=== PATIENT | male | born 1970 | race Caucasian/White ===

== ENCOUNTER 2019-04-22 14:16 | Outpatient (CLI) | payer OTHER ==
[2019-04-22 15:31] VITALS: BP 138/89
--- NOTE | 2019-04-22 15:31 | SLEEP CARE CONSULTATION ---
Information from patient questionnaire entered by Garima Hutchison. I have reviewed and concur with the information entered by Garima Hutchison. This document represents the service I personally performed and the decisions made by me, Wade Graham MD, [facility]. History of Present Illness Reason for Visit: New patient Chief Complaint: reports: Snoring, Fatigue Duration of Symptoms: 5 years Usual bedtime: 2100 Time it takes to fall asleep: 1.5-2 hours Snores at night: Yes Observed to quit breathing while asleep: Yes Sleeps alone due to snoring: Yes Number of times waking at night: 2-3 Reasons for waking at night: reports: Other (unknown) Toss, Turn, or Twitch while sleeping: Yes Recalls having dreams: No Usually gets out of bed at: [id number] Feels refreshed in the morning: No Morning headache: No Sleepy or fatigued during the day: Yes Ever fallen asleep while driving: No Takes day naps: Yes Dreams during day naps: No Prior sleep studies: No Additional HPI information: I had the pleasure of seeing Mr. George today regarding the possibility of him having a sleep disorder. As you know, he is a 48 year old gentleman who complains of loud snore and persistent fatigue for the past 5 years. The patient tells me that he normally goes to bed around 9 pm, and it takes him approximately 1.5 - 2 hours to fall asleep. He has been told that he snores loudly and irregularly at night. He has also been observed to stop breathing in his sleep. His has to sleep in a separate room. He can recall waking up on the average of 2 - 3 times during the night. Most of the time he wakes up because of unknown reasons. He has never awakened because of his own snoring, choking, or having to gasp for air. There is a lot of tossing and turning in his sleep. No somniloquy (sleep talking) or somnambulism (sleep walking). Generally he can recall having dreams. In the morning he usually gets up out of the bed around 4:30 - 6 a.m. (9 am when not working) not feeling refreshed nor rested. He usually does not have a morning headache. During the day he complains of feeling sleepy and fatigued. His score on [place] Sleepiness Scale is 15 out of 24. He has never fallen asleep while driving nor has had any accident due to sleepiness. He usually does not take naps during the day. Upon falling asleep during the day he denies having vivid dreams. He has never had sleep paralysis, experienced cataplexy or symptoms of restless leg syndrome. He reports having impaired concentration during the day. 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 Patient is and lives in [place]. Have you smoked in the past 12 months: No Alcohol use: Yes Alcohol amount and frequency: 3, 1-2 days Caffeine use: Yes Caffeine amount and frequency: every day Family History Family history of sleep disordered breathing: Yes Family Hx Sleep Apnea: Father: Snoring Allergies and Home Medications Drug allergies reviewed: Yes (NKDA) Home medication list reviewed: Yes (Viagra) Review of Systems Weight gain over past 5 years: 15 Cardiovascular: denies: high blood pressure, palpitations, chest pain, irregular heart rate or pulse, leg or foot swelling, have to sleep sitting up, other Respiratory: denies: shortness of breath, wheeze, sputum production, chronic cough, other Gastrointestinal: denies: heartburn, difficulty swallowing, nausea, vomitting, diarrhea, abdominal pain, other Urinary: reports: other (erectile dysfunction) Neurological: denies: headaches, seizure, head trauma, disorientation, speech dysfunction, gait or balance problems, fainting or unconsciousness, other Psychiatric: denies: Attention Deficit Hyperactivity, anxiety, depression, mood disorder, claustrophobia, other Ear/Nose/Throat: denies: nasal congestion, sinus problems, nose bleeds, dry mouth/throat, hoarseness, injury to nose, tonsillectomy, wisdom teeth removed, other Endocrine: reports: sluggishness, increased appetite Musculoskeletal: reports: joint pain, back pain Immunologic: denies: sneezing, rash, itching, allergies to food or environment, other Physical Exam Vital signs obtained and entered by: Dr. Graham Blood Pressure: 138/89 Cuff size: regular Heart Rate: 84 O2 Saturation: 95 Height: 5 ft 7 in Weight: 230 lb Body Mass Index: 36.0 BMI Classification: Obese Neck circumference: 19 Mood/affect: normal HEENT: No craniofacial malformation Nostrils: patent to airflow Turbinates: normal Septum: midline Mouth and throat: narrow oropharynx Soft palate: long Hard palate: normal Uvula: normal Uvula visualization: 25% Mallampati Class III Tongue: enlarged in size with teeth díaz on lateral edges Tonsils: small Chin and jaw: normal size and position Neck: normal w/o lymphadenopathy or thyromegaly Heart: regular rate and rhythm Lungs: clear bilaterally Abdomen: soft, non-tender Extremities: no edema or clubbing Neurologic: intact, no focal deficits Impression and Plan IMPRESSION: 1. Obstructive Sleep Apnea-Hypopnea Syndrome, as suggested by history of loud and irregular snoring, observed cessation of breath while asleep, frequent awakenings during the night, unrefreshed sleep, cognitive impairment, and daytime hypersomnolence. Narrow oropharynx and obesity are common predisposing factors for obstructive sleep apnea-hypopnea syndrome. Pathophysiology of sleep-disordered breathing was discussed. I recommend proceeding to polysomnography to confirm the diagnosis and to assess severity. If he has significant sleep disordered breathing, a manual CPAP titration study will also be performed to find the optimal treatment pressure. I informed the patient of what the sleep studies involve and after some discussion, he agreed to proceed. 2. Delayed sleep phase syndrome, causing sleep onset insomnia and insufficient sleep on weeknights. Because he wakes up at 9 am on the weekends, the physiologic bedtime is not until 1 am, assuming the normal sleep requirement of 8 hours a night. Therefore, when he tries to go to bed early on weeknights, he lies awake for a few hours. The solution is to keep his wakeup time consistentwaking up no later than 7 am on the weekends. Plan: 1. Schedule an in-laboratory polysomnography + manual CPAP titration study 2. Avoid long distance driving or when feeling sleepy. 3. Avoid alcohol, sedative and muscle relaxant around bedtime. 4. Attempt to lose weight. 5. Return in 1 to 2 weeks after the study to discuss results and initiate therapy. I spent 100% of this visit face to face with the patient with greater than 50% of this was spent time counseling the patient and coordination of care.
== END 2019-04-22 14:17 | disposition home or self-care (01) ==
LOC: SC 14:16
PROVIDERS: ATTEND Internal Medicine Pulmonary Disease
DX: R06.83 Snoring (principal); R06.81 Apnea, not elsewhere classified; G47.8 Other sleep disorders; R41.89 Other symptoms and signs involving cognitive functions and awareness; G47.10 Hypersomnia, unspecified; G47.21 Circadian rhythm sleep disorder, delayed sleep phase type; E66.9 Obesity, unspecified; Z68.36 Body mass index [BMI] 36.0-36.9, adult
CPT/HCPCS: 99203; 99212

== ENCOUNTER 2019-05-18 19:33 | Outpatient (CLI) | payer OTHER | END 2019-05-18 19:34 | disposition home or self-care (01) | LOC: SC 19:33 | PROVIDERS: ATTEND Internal Medicine Pulmonary Disease | DX: G47.33 Obstructive sleep apnea (adult) (pediatric) (principal); G47.61 Periodic limb movement disorder; E66.9 Obesity, unspecified; Z68.36 Body mass index [BMI] 36.0-36.9, adult | CPT/HCPCS: 95810 ==

== ENCOUNTER 2019-06-17 16:28 | Outpatient (CLI) | payer OTHER ==
--- NOTE | 2019-06-17 15:39 | SLEEP CARE CONSULTATION ---
Information from patient questionnaire entered by Garima Hutchison. I have reviewed and concur with the information entered by Garima Hutchison. This document represents the service I personally performed and the decisions made by me, Wade Graham MD, [facility]. History of Present Illness Service Date and Time: 06/17/2019 1340 Initial [place] Sleepiness Scale score: 15 Additional HPI information: HPI: Mr. George was called for a follow up of the sleep study he had on 05/18/2019. The polysomnography showed that the patient had reduced sleep efficiency due to sleep onset insomnia and several awakenings during the night. Despite moderate sleep fragmentation, the sleep architecture was normal. Respiratory monitoring showed severe obstructive sleep apnea-hypopnea (AHI = 35.1) associated with frequent arousals, oxyhemoglobin desaturation and moderate hypoxia (joel oxygen saturation of 76%). Baseline oxygen saturation was normal. The respiratory events occurred mainly during supine sleep (supine AHI = 70.7; non-supine = 24.37). Snore was loud in intensity. There was mild periodic leg movement of sleep not contributing to the sleep fragmentation. Cardiac rhythm was normal sinus rhythm without significant arrhythmia. No abnormal behavior (parasomnia) observed during the night. The patient was informed of these findings. I explained to him the pathophysiology behind obstructive sleep apnea. We then spent quite a bit of time discussing different treatment options. For mild obstructive sleep apnea, surgery and oral appliance are alternatives to nasal CPAP therapy but in moderate or severe cases, nasal CPAP is the most effective and reliable treatment. Weight loss in an obese individual is strongly recommended. After some discussion, he opted to go with the nasal CPAP therapy. I explained to him how CPAP machine works and what to expect when using the machine. He is encouraged to use CPAP every night especially in the first 2 to 3 nights in order to get used to it. He should call his CPAP supplier or me to discuss any mechanical problem that may occur. If he snores or feels like he is not getting enough air from the machine, he should notify me and I will increase the pressure. Allergies and Home Medications Drug allergies reviewed: Yes Home medication list reviewed: Yes Review of Systems Review of systems same as previous: Yes Physical Exam Height: 5 ft 7 in Impression and Plan IMPRESSION: 1. Obstructive Sleep Apnea-Hypopnea Syndrome, severe, associated with moderate hypoxemia and sleep fragmentation. Obviously this is the cause of the patients symptoms of unrefreshed sleep, and excessive daytime sleepiness. As mentioned above, the patient will be started on an autoCPAP set at 5 - 15 cmH2O. Depending on his response and compliance he may be brought back for an overnight CPAP titration study (due to COVID-19, no sleep studies are being performed at the present). PLAN: 1. Prescription made for an autoCPAP, heated humidifier, and related supplies. 2. Attempt to lose weight and avoid alcohol consumption near bedtime. 3. The patient is again cautioned about driving until his sleepiness completely resolves on the CPAP therapy. 4. Return in six weeks for follow up. I will assess his response and compliance at that time. Visit Type: Telehealth Video Video Type: [employer] Location of Provider: Home Patient agrees and consents to this telehealth visit type: Yes Time Spent with Patient (minutes): 15 Provider Statement: I spent 100% of the Telehealth Video Call with the patient with greater than 50% spent counseling the patient and coordination of care.
== END 2019-06-17 16:29 | disposition home or self-care (01) ==
LOC: SC 16:28
PROVIDERS: ATTEND Internal Medicine Pulmonary Disease
DX: G47.33 Obstructive sleep apnea (adult) (pediatric) (principal)
CPT/HCPCS: 99212; 99213

== ENCOUNTER 2020-11-24 15:18 | Outpatient (CLI) | payer OTHER ==
[2020-11-24 16:05] VITALS: BP 137/88
--- NOTE | 2020-11-24 16:05 | SLEEP CARE CONSULTATION ---
Information from patient questionnaire entered by Garima Hutchison. I have reviewed and concur with the information entered by Garima Hutchison. This document represents the service I personally performed and the decisions made by , Niesha Pan ARNP. History of Present Illness Service Date and Time: 11/24/2020 1518 Previous diagnosis: Severe, Obstructive Sleep Apnea-Hypopnea Syndrome AHI: 35.1 Reason for follow up: annual Equipment type: CPAP Equipment obtained from: Other ([facility]; getting supplies as needed) Mask style: Full face (Air Touch best F20) Backup mask available: Yes (old mask) Last cushion change: 3 weeks Prior sleep studies: Yes Year and Where: 2019 [facility] Type of Sleep Study: Polysomnography HPI additional information: BLANQUITA AGUIRRE was diagnosed to have severe, AHI 35.1, obstructive sleep apnea- hypopnea syndrome and returned today for CPAP therapy annual follow-up. Sleep Study - Results Prior sleep studies: Yes Year and Where: 2019 [facility] [employer] [facility] CPAP Compliance Data - Data Reviewed with Patient Average duration of nightly device use: 7 hours 13 minutes Compliance rate %: 93.9 Current pressure setting (cmH2O): 8-15 Humidity settin Heated hose settin Average residual AHI: 3.2 Average large leak: 0 seconds Subjective Missed days of use due to: reports: travel, other (recall) Patient concerns: reports: dry mouth, nose, throat (occasional). denies: aerophagia, mask discomfort, air blowing in eyes, mask leak noise, condensation in mask/hose, nasal congestion, epistaxis, other Observed to snore while using device: No Current pressure setting perceived as: comfortable On therapy, patient: reports: sleeping better, awakening more refreshed, being more awake and alert during the day, more rested overall. denies: drowsiness while driving Initial [place] Sleepiness Scale score: 15 (in 2020) Current [place] Sleepiness Scale score: 5 Allergies and Home Medications Home medication list reviewed: Yes (no changes) Review of Systems Review of systems same as previous: Yes (no changes) Physical Exam Blood Pressure: 137/88 Cuff size: wrist Heart Rate: 93 O2 Saturation: 95 Height: 5 ft 7 in Weight: 252 lb Body Mass Index: 39.4 BMI Classification: Obese Impression and Plan 1. Obstructive Sleep Apnea-Hypopnea Syndrome, severe, with good treatment compliance and good apnea control. On CPAP therapy, the patient has better sleep quality and is more rested overall. Patient aware of Lindsey recall comes in for his annual follow-up. Patient has already registered their device for the recall. Patient denies any black particles seen in machine or hoses, any unusual odors coming from device. Patient has not experienced any physical symptoms such as upper airway irritation, headache, skin or eye irritation, asthma, nausea/vomiting, difficulty breathing or chest pain. Patient informed that they may use an inline CPAP filter that they can obtain online to reduce chance of any particles being inhaled or ingested. We discussed thoroughly the health risks of not using the CPAP versus continuing use with the filter in place. If patient is not able to sleep due to waking up choking, gasping for air or other respiratory distress that they may decide to continue using it until it is either replaced or repaired. Patient has [employer] insurance which has said it will replace his device that is on recall. I will write for this replacement de vice and have him follow-up here a month after he obtains the new device. Patient was encouraged to lose weight for their overall health and to reduce apneas. Patient voiced understanding and agreement with plan. Patient's apnea severity and rationale for treatment to reduce apnea, improve sleep quality and reduce cardiovascular and cerebrovascular events was reviewed. * Continue auto CPAP pressure at 8-15 cmH2O * Replacement device for machine on recall * Notify me if snoring with mask or feeling that the pressure is too much or too little * Attempt to lose weight * Call this office if any problems using CPAP * Return for follow up one month after obtaining new device, or sooner if concerns arise Counseling Topics: Spare mask, Weight loss health impact Visit Type: In Office Time Spent with Patient (minutes): 19 Provider Statement: I spent 100% of the Face to Face Visit with the patient with greater than 50% spent counseling the patient and coordination of care.
== END 2020-11-24 15:19 | disposition home or self-care (01) ==
LOC: SC 15:18
PROVIDERS: ATTEND Nurse Practitioner Family
DX: G47.33 Obstructive sleep apnea (adult) (pediatric) (principal); E66.9 Obesity, unspecified; Z68.39 Body mass index [BMI] 39.0-39.9, adult
CPT/HCPCS: 99212; 99213

== ENCOUNTER 2021-12-02 07:05 | Outpatient (CLI) | payer OTHER ==
--- NOTE | 2021-12-02 12:39 | MRI Report ---
PROCEDURE: Ankle LT W/O INDICATIONS: BILATERAL ANKLE PAIN TECHNIQUE: Noncontrast Magnetic Resonance Imaging (MRI) of the ankle/hindfoot was performed utilizing the follow ing sequences: sagittal T1 spin echo, sagittal STIR, axial PD fast spin echo, axial T2 fast spin echo with fat saturation, coronal T2 spin echo with fat saturation, and coronal PD fast spin echo with fa t saturation. COMPARISON: None. FINDINGS: Image quality: Excellent. Bones and joints: No acute trabecular bone injury or fracture. No hindfoot coalition. A chronic osteochondral lesion is seen at the medial talar dome measuring approximately 9 x 4 x 5 mm with subchondral cystic changes a nd overlying cartilage loss. The subchondral plate appears to be intact. No these osteochondral pregn godwin is seen. Chronic subchondral cystic changes and edema are also seen throughout the distal tibial plafond. Degenerative changes are seen at the navicular-second cuneiform articulation with subchondr al cystic changes and edema. Degenerative changes also noted at the third tarsometatarsal joint. Mild ly dorsal spurring at the talonavicular joint Medial structures: The deltoid ligament and the spring ligament are intact. Fluid is seen surrounding the distal posteri or tibialis tendon, consistent with mild tenosynovitis. The flexor digitorum longus and flexor halluc is longus tendons are intact. The posterior tibial neurovascular bundle appears normal within the tar dhaval tunnel, without extrinsic mass effect. Lateral structures: The anterior and posterior distal tibiofibular ligaments are intact. There is thickening of the anter ior talofibular ligament and calcaneofibular ligament, consistent with chronic moderate grade sprains . The posterior talofibular ligament is intact. The peroneus brevis and longus tendons demonstrate mi ld tenosynovitis. A small ganglion cyst is seen arising from the lateral sinus tarsi measuring approx imately 9 x 8 x 3 mm. Anterior structures: The tibialis anterior, extensor hallucis longus, and extensor digitorum longus tendons appear intact. Posterior and plantar structures: The Achilles tendon is intact. There is mild thickening the proximal plantar fascia without surroundi ng edema. No disproportionate atrophy of the abductor digiti minimi muscle. IMPRESSION: 1.Chronic osteochondral lesion at the medial talar dome measuring 9 x 4 x 5 mm with subchondral cysti c changes and overlying cartilage loss. The subchondral plate appears to remain intact without a loos e osteochondral fragment. 2.Diffuse cartilage loss throughout the mortise joint with prominent subchondral cystic changes and e ramsey within the tibial plafond. Additional scattered degenerative changes at the talonavicular, navic ulocuneiform, and third tarsometatarsal joints. 3.Chronic grade 2 sprains of the anterior talofibular ligament and calcaneofibular ligament. 4.Mild peroneus brevis and longus tenosynovitis. 5.Mild posterior tibialis tenosynovitis. 6.Small ganglion cyst arising from the lateral sinus tarsi measures up to 9 mm. 7.Mild chronic proximal plantar fasciitis. Reviewed by: Shahram Magdaleno MD on 12/02/2021 12:38 PM PDT Approved by: Shahram Magdaleno MD on 12/02/2021 12:38 PM PDT Station ID: [id number]
--- NOTE | 2021-12-02 12:40 | MRI Report ---
PROCEDURE: Ankle RT W/O INDICATIONS: BILATERAL ANKLE PAIN TECHNIQUE: Noncontrast Magnetic Resonance Imaging (MRI) of the ankle/hindfoot was performed utilizing the follow ing sequences: sagittal T1 spin echo, sagittal STIR, axial PD fast spin echo, axial T2 fast spin echo with fat saturation, coronal T2 spin echo with fat saturation, and coronal PD fast spin echo with fa t saturation. COMPARISON: None. FINDINGS: Image quality: Excellent. Bones and joints: No acute trabecular bone injury or fracture. No hindfoot coalition. A chronic osteochondral lesion is seen at the medial talar dome measuring approximately 16 x 6 x 5 mm with subchondral cystic changes and edema, overlying cartilage loss, and irregularity and mild flattening of the subchondral plate. N o loose osteochondral fragment is seen. Mild subchondral cystic changes are seen in the middle subtal ar facet. Subchondral cystic changes and edema are noted at the calcaneocuboid joint. Mild osseous ir regularity at the anterior calcaneal process is likely related to remote prior trauma. Medial structures: The deltoid ligament and the spring ligament are intact. The posterior tibialis, flexor digitorum melissa bradley, and flexor hallucis longus tendons are intact. The posterior tibial neurovascular bundle appears normal within the tarsal tunnel, without extrinsic mass effect. Lateral structures: The anterior and posterior distal tibiofibular ligaments are intact. Mild osseous irregularity is see n at the origin of the anterior talofibular ligament, which may be the sequela of remote prior trauma . Probable chronic low-grade sprain of the anterior talofibular ligament and calcaneofibular ligament . The posterior talofibular ligament is intact. The peroneus longus and peroneus brevis tendons demon strate mild tenosynovitis. There is partial effacement of the normal fat signal in the sinus tarsi. Anterior structures: The tibialis anterior, extensor hallucis longus, and extensor digitorum longus tendons appear intact. Posterior and plantar structures: The Achilles tendon is intact. Small nonedematous posterior and plantar calcaneal enthesophytes. Ther e is moderate thickening of the proximal plantar fascia without surrounding edema. Mild grade 2 fatty infiltration of the abductor digiti minimi muscle and mild increased T2 signal intensity may indicat e early or mild denervation changes. IMPRESSION: 1.Chronic osteochondral lesion at the medial talar dome measuring 16 x 6 x 5 mm with subchondral cyst ic changes and subchondral edema, full-thickness cartilage loss, and irregularity and flattening of t he subchondral plate. No loose osteochondral fragment. 2.Degenerative changes at the middle subtalar facet and calcaneocuboid articulations including subcho ndral cystic changes and edema. 3.Chronic low-grade sprains of the anterior talofibular ligament and calcaneofibular ligament. Mild n onedematous osseous irregularity at the distal fibular tip involving the ligament origins may be the sequela of remote prior trauma. 4.Mild peroneus brevis and longus tenosynovitis. 5.Moderate chronic proximal plantar fasciitis. 6.Mild fatty infiltration and edema within the abductor digiti quinti minimi muscle may be related to mild or early denervation changes/Solorio neuropathy. Reviewed by: Shahram Magdaleno MD on 12/02/2021 12:39 PM PDT Approved by: Shahram Magdaleno MD on 12/02/2021 12:39 PM PDT Station ID: [id number]
== END 2021-12-02 07:06 | disposition home or self-care (01) ==
LOC: DI 07:05
PROVIDERS: ATTEND Podiatrist
DX: M85.661 Other cyst of bone, right lower leg (principal); M19.071 Primary osteoarthritis, right ankle and foot; S93.491A Sprain of other ligament of right ankle, initial encounter; S93.411A Sprain of calcaneofibular ligament of right ankle, initial encounter; M65.871 Other synovitis and tenosynovitis, right ankle and foot; M72.2 Plantar fascial fibromatosis; M85.662 Other cyst of bone, left lower leg; M19.072 Primary osteoarthritis, left ankle and foot; M65.872 Other synovitis and tenosynovitis, left ankle and foot; M67.472 Ganglion, left ankle and foot